=== PATIENT | female | born 1995 | race Caucasian/White ===

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

== ENCOUNTER 2018-06-12 20:49 | Emergency (ER) | payer OTHER ==
[2018-06-12 23:21] VITALS: BP 136/72
--- NOTE | 2018-06-13 00:32 | ED ---
Lower Extremity - HPI Summary HPI Summary: 22-year-old female presents with right ankle injury today. States that someone was sitting on her leg so it went numb. She stood up and inverted her ankle. she states numbness in her monsalve has persisted. Denies any knee pain. No other injury. States she has significant pain when she tries to ambulate. - History of Current Complaint Chief Complaint: EDExtremityLower Stated Complaint: RT ANKLE INJURY PER PT Time Seen by Provider: 06/13/18 00:24 Pain Intensity: 8 - Allergies/Home Medications Allergies/Adverse Reactions: Allergies Allergy/AdvReac Type Severity Reaction Status Date / Time amoxicillin Allergy Unknown Verified 06/12/18 21:03 Reaction Details PMH/Surg Hx/FS Hx/Imm Hx Endocrine/Hematology History: Denies: Hx Diabetes Cardiovascular History: Denies: Hx Myocardial Infarction Respiratory History: Reports: Hx Asthma - childhood asthma Infectious Disease History: No Infectious Disease History: Reports: Traveled Outside the [place] in Last 30 Days - Family History Known Family History: Positive: Diabetes - father Negative: Cardiac Disease, Hypertension - Social History Alcohol Use: Occasionally Substance Use Type: Reports: None Smoking Status (MU): Never Smoked Tobacco Review of Systems Negative: Fever Negative: Chest Pain Negative: Shortness Of Breath Positive: Myalgia - right ankle pain All Other Systems Reviewed And Are Negative: Yes Physical Exam Triage Information Reviewed: Yes Vital Signs On Initial Exam: Initial Vitals Temp Pulse Resp BP Pulse Ox 99.6 F 98 16 147/91 97 06/12/18 21:00 06/12/18 21:00 06/12/18 21:00 06/12/18 21:00 06/12/18 21:00 Vital Signs Reviewed: Yes Appearance: Positive: Well-Appearing Skin: Positive: Warm, Dry Head/Face: Positive: Normal Head/Face Inspection Eyes: Positive: Normal, Conjunctiva Clear ENT: Positive: Pharynx normal Respiratory/Lung Sounds: Positive: Clear to Auscultation, Breath Sounds Present Cardiovascular: Positive: Normal, RRR Musculoskeletal: Positive: Limited @ - right ankle, Edema Right - lateral malleolus, Other - tenderness right lateral malleolus, good pulses, sensation grossly intact Neurological: Positive: Normal Psychiatric: Positive: Normal Diagnostics - Vital Signs Vital Signs Temp Pulse Resp BP Pulse Ox 06/12/18 23:15 99.4 F 100 16 136/72 98 06/12/18 21:00 99.6 F 98 16 147/91 97 - Laboratory Lab Statement: Any lab studies that have been ordered have been reviewed, and results considered in the medical decision making process. - Radiology ankle Radiology Interpretation Completed By: ED Physician Summary of Radiographic Findings: no fx Lower Extremity Course/Dx - Course Course Of Treatment: 22-year-old female presents with right ankle injury today. States that someone was sitting on her leg so it went numb. She stood up and inverted her ankle. she states numbness in her monsalve has persisted. Denies any knee pain. No other injury. States she has significant pain when she tries to ambulate. On exam tenderness over lateral malleolus of her ankle. Neurovascular intact. X-ray read by me as shows soft tissue swelling. Gave gel splint Fidencio and crutches. Told to [facility]. Patient understands and agrees with plan. - Diagnoses Differential Diagnosis/HQI/PQRI: Positive: Fracture (Closed), Sprain, Strain Provider Diagnoses: Right ankle injury Discharge - Sign-Out/Discharge Documenting (check all that apply): Patient Departure Patient Received Moderate/Deep Sedation with Procedure: No - Discharge Plan Condition: Good Disposition: HOME Patient Education Materials: Ankle Sprain (ED) Referrals: No Primary Care Phys,NOPCP [Primary Care Provider] - Additional Instructions: Stay off ankle as much as possible Ice, elevate, keep in FIDENCIO as needed Ibuprofen every 6 hours for pain Follow up with primary if no improvement Return to ED if develop or any new or worsening symptoms - Billing Disposition and Condition Condition: GOOD Disposition: Home
== END 2018-06-13 01:09 | disposition home or self-care (01) ==
LOC: ED 20:49
DX: S99.911A Unspecified injury of right ankle, initial encounter (principal); X50.9XXA Other and unspecified overexertion or strenuous movements or postures, initial encounter; X50.0XXA Overexertion from strenuous movement or load, initial encounter; Y92.9 Unspecified place or not applicable; Z88.0 Allergy status to penicillin
CPT/HCPCS: 99281